=== PATIENT | female | born 1945 | race Caucasian/White ===

== ENCOUNTER → 2020-03-27 | Outpatient (CLI) | payer MEDICARE, OTHER ==
[~2020-03-27] MED LIST: LIDOCAINE 1% Multi-Dose 20 ML VIAL. INJ ONE
--- NOTE | 2020-03-27 11:19 | RAD ---
Examination: 1. Ultrasound-guided right breast core needle biopsy. 2. Right postprocedure mammogram. INDICATION: 74-year-old woman recalled from screening for a 2.2 cm suspicious mass in the inferior ri ght breast recommended for biopsy on follow-up diagnostic imaging. COMPARISON: Screening mammogram of 03/05/2020, right diagnostic mammogram and targeted breast ultrasou nd of 03/15/2020. TECHNIQUE AND FINDINGS: Informed consent was obtained and an appropriate procedural pause observed. Using standard sterile te chnique, ultrasound guidance and local anesthesia, 2 14-gauge core biopsy samples of the mass of the right 6:00 position 5 cm from the nipple were obtained and an S-shaped biopsy marker deployed in the mass. Hemostasis was ensured with direct breast compression for several minutes and a postprocedure m ammogram was obtained after puncture site was dressed. The post procedure mammogram showed almost entirely fatty replaced right breast with postprocedure ch anges around the mass in the inferior breast and satisfactory deployment of the S-shaped biopsy marke r within the mass. No postbiopsy hematoma. She tolerated the procedure without incident. She was discharged in stable condition with postprocedure instructions, including follow up with her referring physician. No apparent complication. IMPRESSION: Successful ultrasound-guided right breast core needle biopsy with marker deployment in good position. No apparent complication. Pathology results are pending. An addendum will be issued once pathology r esults become available. Electronically signed by: Shira Walter MD (03/27/2020 11:17 AM) [id number]
--- NOTE | 2020-03-28 17:14 | PATHOLOGY ---
[facility] Accession Number: [id number] . 01 Material submitted: . breast - RIGHT BREAST MASS 6:00 5CMFN. Modifiers: right . 01 Clinical history: . RIGHT BREAST MASS 6:00 5CMFN RIGHT BREAST BIOPSY . 02 Diagnosis: Breast tissue, right breast mass 6:00 needle biopsies: - INVASIVE DUCTAL CARCINOMA, HIGH GRADE. SEE COMMENT. (JPM:[facility] 03/28/2020) [facility] 03/28/2020 1656 Local . 02 Comment: Sections of the right breast mass at 6:00 needle biopsy reveal an invasive mammary carcinoma. Tumor cells are present in irregular solid nests which infiltrate a reactive desmoplastic stroma and show little to no tubule formation. The tumor cells show marked nuclear pleomorphism. Mitotic figures are readily demonstrated including the presence of atypical mitotic figures. There are foci of tumor necrosis. The invasive carcinoma measures up to 1.5 cm in greatest dimension on the glass slide. There are no tumor associated calcifications. There is no lymphovascular tumor invasion. Breast prognostic studies will be obtained on block A1, the results of which will be reported separately. . The case is also examined by Dr. Gaviria, who concurs with the diagnosis. (JPM:[facility] 03/28/2020) . 02 Electronically signed: . Gerson Rubio MD, Pathologist NPI- [id number] . 01 Gross description: . The specimen is received in formalin, labeled "Khadijah Warren, right breast 6:00 5 cm from nipple". Received are two needle cores of fibrofatty tissue measuring 1.8 x 0.4 x 0.2 cm in aggregate dimensions. The specimen is submitted entirely in cassettes A1 and A2. The cold ischemic time is 1 minute. The total formalin fixation time is 12 hours and 48 minutes. ([facility]AA; 03/27/2020) [facility]AC 03/27/2020 1517 Local . 02 Pathologist provided ICD-10: C50.911 . 02 CPT . 453291 Specimen Comment: A courtesy copy of this report has been sent to [phone] Specimen Comment: Report sent to Performed at: 01 [facility] [address], [place] [id number] MD Thanh Gaviria MD Phone: [phone] Performed at: 02 [facility] [address] [place], [place] [id number] MD Gerson Rubio MD Phone: [phone]
== END | disposition home or self-care (01) ==
LOC: US 08:38
PROVIDERS: ATTEND Family Medicine
DX: N63.14 Unspecified lump in the right breast, lower inner quadrant (principal); C50.911 Malignant neoplasm of unspecified site of right female breast
CPT/HCPCS: 19083; 77065; C1713